=== PATIENT | female | born 1975 | race African-American/Black ===

== ENCOUNTER → 2020-05-29 | Outpatient (CLI) | payer MEDICAID ==
[~2020-05-29] MED LIST: AMLO10TA80 PO; FAMO20TA8 PO; HYDR-4133 PO; HYDR25TA PO; METF-414 PO; PANT40TA51 PO
== END | disposition home or self-care (01) ==
LOC: LAB 11:05
PROVIDERS: ATTEND Specialist
DX: Z01.812 Encounter for preprocedural laboratory examination (principal); Z20.822 Contact with and (suspected) exposure to COVID-19
CPT/HCPCS: 87426

== ENCOUNTER 2020-09-06 09:44 | Emergency (ER) | payer MEDICAID ==
[~2020-09-06] VITALS: Ht 165.1 cm; Wt 64.0 kg
[~2020-09-06 09:44] MED LIST changes: -HYDR-4133 PO
[2020-09-06] MEDS ORDERED: ONDANSETRON HCL 4MG/2ML INJ IV STA (10:01)
[2020-09-06] MEDS ORDERED: SODIUM CHLORIDE 0.9% 1,000 ML IV ONE (10:15)
[2020-09-06 10:21] LABS: HEMATOCRIT. 47.4 % (36.0-48.0); HEMOGLOBIN. 16.5 g/dL (12.0-16.0); MEAN CORPUSCULAR HEMOGLOBIN 28.9 pg (28.0-32.0); MEAN CORPUSCULAR VOLUME 82.9 fL (81.0-99.0); MEAN PLATELET VOLUME 10.2 fl (7.4-10.4); PLATELET 114 x1000/uL (130-400); RED BLOOD CELL COUNT 5.72 mill/uL (4.2-5.4); RED CELL DISTRIBUTION WIDTH 15.9 % (11.6-14.6)
[2020-09-06 10:28] LABS: CLARITY URINE CLEAR (CLEAR); COLOR URINE YELLOW (YELLOW); KETONES URINE NEGATIVE (NEGATIVE); LEUKOCYTE ESTERASE URINE NEGATIVE (NEGATIVE); NITRITE URINE NEGATIVE (NEGATIVE); OCCULT BLOOD URINE NEGATIVE (NEGATIVE); PROTEIN URINE NEGATIVE (NEGATIVE); SPECIFIC GRAVITY URINE 1.017 (1.005-1.030); UROBILINOGEN URINE 0.2 E.U./dL (0.2-1.0)
[2020-09-06 10:29] LABS: CHLORIDE 105 mEq/L (98-107)
[2020-09-06 10:31] LABS: PROTHROMBIN TIME 10.4 sec (9.6-11.0)
[2020-09-06] MEDS: MORPHINE SULFATE 4 MG/ML CPJ (NOT FOR IM USE) IV STA ×2 (10:54→11:24)
[2020-09-06 11:39] LABS: PLATELET ESTIMATE SLIGHTLY DECREASED
[2020-09-06] MEDS ORDERED: POTASSIUM CHLORIDE 20MEQ TABLET SR PO SCH (12:00)
[2020-09-06] MEDS ORDERED: ACETAMINOPHEN 325MG TABLET PO ONE (12:15)
[2020-09-06 15:09] VITALS: BP 146/85
== END 2020-09-06 15:26 | disposition home or self-care (01) ==
LOC: ER 10:31
DX: R10.9 Unspecified abdominal pain (principal); E87.6 Hypokalemia; E11.9 Type 2 diabetes mellitus without complications; K21.9 Gastro-esophageal reflux disease without esophagitis; I10 Essential (primary) hypertension
CPT/HCPCS: 36415; 74177; 80053; 81003; 83690; 85025; 85610; 93005; 96361; 96374; 99285; J2270; J2405; J7030; Z7610

== ENCOUNTER 2022-05-21 04:12 | Emergency (ER) | payer MEDICAID ==
[~2022-05-21] VITALS: Ht 162.6 cm; Wt 95.0 kg
[2022-05-21] MEDS ORDERED: KETOROLAC 30MG/ML VIAL IV ONE (06:15)
[2022-05-21] MEDS ORDERED: SODIUM CHLORIDE 0.9% 1,000 ML IV ONE (06:15)
[2022-05-21] MEDS ORDERED: ONDANSETRON HCL 4MG/2ML INJ IV ONE (06:15)
[2022-05-21 06:38] LABS: BASOPHILS % 0.4 % (0.0-2.0); EOSINOPHILS % 0.6 % (0.0-5.0); HEMATOCRIT. 46.4 % (36.0-48.0); HEMOGLOBIN. 15.5 g/dL (12.0-16.0); LYMPHOCYTES % 28.7 % (20.0-50.0); MEAN CORPUSCULAR HEMOGLOBIN 27.6 pg (28.0-32.0); MEAN CORPUSCULAR VOLUME 82.3 fL (81.0-99.0); MEAN PLATELET VOLUME 9.6 fl (7.4-10.4); MONOCYTES % 4.3 % (2.0-8.0); PLATELET 153 x1000/uL (130-400); RED BLOOD CELL COUNT 5.64 mill/uL (4.2-5.4); RED CELL DISTRIBUTION WIDTH 15.9 % (11.6-14.6)
[2022-05-21 06:41] LABS: CHLORIDE 102 mEq/L (98-107)
[2022-05-21 06:58] LABS: CLARITY URINE CLEAR (CLEAR); COLOR URINE YELLOW (YELLOW); KETONES URINE NEGATIVE (NEGATIVE); LEUKOCYTE ESTERASE URINE NEGATIVE (NEGATIVE); NITRITE URINE NEGATIVE (NEGATIVE); OCCULT BLOOD URINE NEGATIVE (NEGATIVE); PH URINE 7.5 (4.5-8.0); PROTEIN URINE NEGATIVE (NEGATIVE); SPECIFIC GRAVITY URINE 1.013 (1.005-1.030); UROBILINOGEN URINE 0.2 E.U./dL (0.2-1.0)
[2022-05-21] MEDS ORDERED: LIDOCAINE 5% PATCH TOP SCH (07:45)
[2022-05-21] MEDS ORDERED: NAPR-681 MT (11:24)
[2022-05-21] MEDS ORDERED: CYCL10TA21 MT (11:24)
[2022-05-21 12:20] VITALS: BP 135/69
== END 2022-05-21 12:20 | disposition home or self-care (01) ==
LOC: ER 04:12
DX: N70.11 Chronic salpingitis (principal); I10 Essential (primary) hypertension; E11.9 Type 2 diabetes mellitus without complications; Z90.49 Acquired absence of other specified parts of digestive tract
CPT/HCPCS: 36415; 74176; 76830; 76856; 80053; 81003; 83690; 85025; 93976; 96374; 96375; 99285; J1885; J2405; J7030; Z7610